=== PATIENT | female | born 1990 | race African-American/Black ===

== ENCOUNTER 2019-06-02 23:09 | Emergency (ER) | payer SELFPAY ==
[~2019-06-02] VITALS: Ht 170.2 cm; Wt 68.0 kg
[2019-06-02 23:15] VITALS: BP 120/72
--- NOTE | 2019-06-02 23:16 | Emergency Room Report ---
History of Present Illness General Chief Complaint: Alcohol Intoxication Source: EMS Present Illness HPI Disclaimer: Please note that this report is being documented using DRAGON technology. This can lead to erroneous entry secondary to incorrect interpretation by the dictating instrument. HPI: Reportedly 28-year-old Sabrina Mcclelland brought in by ambulance for evaluation of alcohol intoxication. According to EMS report, the patient was behaving erratically walking through traffic and was helped by bystanders to the side and sat down. She seemed to be intoxicated. The patient is not providing any information. She is arousable to her name, Mary, but otherwise is nonconversant. She appears to be moving all extremities. No obvious trauma. There is no reported head injury by bystanders to EMS. PMH: Unknown PSH: Unknown Allergies: Unknown Social Hx: Unknown Allergies: Coded Allergies: UNABLE TO ASSESS (Unverified , 06/02/19) Patient History Last Menstrual Period: n/a Nursing Documentation-PMH Past Medical History Deferred: Patient Unconscious Review of Systems All Other Systems: limited - Could not obtain due to clinical condition Physical Exam Vital Signs Date Time Temp Pulse Resp B/P (MAP) Pulse Ox O2 Delivery O2 Flow Rate FiO2 06/02/19 22:58 98.2 73 18 120/72 (88) 97 General: Somnolent, arousable to name, no acute distress, well kempt HEENT: NC/AT. No scalp or facial hematomas, lacerations or abrasions. EOMI. anicteric sclera. Cardiovascular: RRR. S1 and S2 normal. No murmur appreciated Resp: Normal work of breathing. No cough, wheezing or crackles appreciated Abdomen: Abdomen is soft, nondistended. Nontender Skin: Intact. No abrasions, laceration or rash over the exposed skin MSK: Normal tone and bulk. Moving all extremities. No obvious deformity. Neuro: Somnolent but arousable. Able to tell us her name only. Moving all extremities. Medical Decision Making Diagnostic Impression: Primary Impression: Acute alcoholic intoxication ER Course Sabrina Mcclelland brought in by EMS for alcohol intoxication. No acute distress, arrives with stable vital signs, sleeping comfortably and arousable to voice. Will allow to metabolize. Will order a BMP but at this time do not believe she requires other emergent labs or imaging Laboratory Tests Test 06/02/19 23:25 Sodium Level 140 MMOL/L (136-145) Potassium Level 3.9 MMOL/L (3.5-5.1) Chloride Level 106 MMOL/L (98-107) Carbon Dioxide Level 25 MMOL/L (21-32) Anion Gap 9 mmol/L (5-15) Blood Urea Nitrogen 21 mg/dL (7-18) H Creatinine 0.9 MG/DL (0.55-1.30) Estimate Glomerular Filtration Rate > 60 mL/min (>60) Glucose Level 83 MG/DL (74-106) Calcium Level 9.2 MG/DL (8.5-10.1) Reevaluation Time: 04:56 Last Vital Signs Date Time Temp Pulse Resp B/P (MAP) Pulse Ox O2 Delivery O2 Flow Rate FiO2 06/02/19 22:58 98.2 73 18 120/72 (88) 97 Reevaluation Impression BMP unremarkable. Patient was allowed to metabolize in the ED for 6 hours. I was informed by nursing staff that the patient was becoming combative. She was escorted out of the emergency department by security due to her aggressive behavior. Disposition: HOME, SELF-CARE Condition: Stable Manny Berger MD Jun 02, 2019 23:16
[2019-06-02 23:48] LABS: ANION GAP 9 mmol/L (5-15); BLOOD UREA NITROGEN 21 mg/dL (7-18); CALCIUM 9.2 MG/DL (8.5-10.1); CARBON DIOXIDE 25 MMOL/L (21-32); CHLORIDE 106 MMOL/L (98-107); CREATININE 0.9 MG/DL (0.55-1.30); POTASSIUM 3.9 MMOL/L (3.5-5.1); SODIUM 140 MMOL/L (136-145)
[2019-06-03 04:19] VITALS: BP 115/75
== END 2019-06-03 05:12 | disposition home or self-care (01) ==
LOC: EDBD 23:09 → EMR 23:52
DX: F10.129 Alcohol abuse with intoxication, unspecified (principal)
CPT/HCPCS: 36415; 80048; 96360; 99284; J7030